=== PATIENT | male | born 2000 | race Caucasian/White ===

== ENCOUNTER 2023-08-20 16:39 | Emergency (ER) | payer OTHER, BC, SELFPAY ==
[2023-08-20 16:47] VITALS: BP 153/103
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
[2023-08-20 19:03] VITALS: BMI 34.3
[2023-08-20 19:14] VITALS: BP 140/90
== END 2023-08-20 20:23 | disposition home or self-care (01) ==
LOC: EMR 16:39
PROVIDERS: EMERGENCY PHYSICIAN Emergency Medicine; FAMILY PHYSICIAN Internal Medicine
DX: S06.0XAA Concussion with loss of consciousness status unknown, initial encounter (principal); V49.40XA Driver injured in collision with unspecified motor vehicles in traffic accident, initial encounter; I10 Essential (primary) hypertension; F31.9 Bipolar disorder, unspecified; F43.10 Post-traumatic stress disorder, unspecified; F25.9 Schizoaffective disorder, unspecified; F90.9 Attention-deficit hyperactivity disorder, unspecified type
CPT/HCPCS: 99282

== ENCOUNTER → 2024-03-19 06:43 | Outpatient (REF) | payer BC, SELFPAY | LOC: MRI 3T 06:43 | PROVIDERS: ATTENDING PHYSICIAN Family Medicine | DX: R55 Syncope and collapse (principal); R51.9 Headache, unspecified; R20.0 Anesthesia of skin; R50.9 Fever, unspecified; M54.2 Cervicalgia | CPT/HCPCS: 70551 ==

== ENCOUNTER 2024-06-15 10:10 | Emergency (ER) | payer BC, SELFPAY ==
[2024-06-15 10:13] VITALS: BP 128/92
[2024-06-15 10:47] VITALS: BP 116/81
[2024-06-15 10:53] VITALS: BMI 27.5
[2024-06-15 11:05] LABS: % Basophils 0.5 % (0-2); % Eosinophils 3.3 % (0-6); % Immature Granulocytes 0.3 % (0-0.5); % Lymphocytes 38.3 % (20.5-51.1); % Monocytes 11.1 % (1.7-9.3); % Neutrophils 46.5 % (42.2-75.2); Absolute Eosinophils 0.3 10^3/uL (0-0.7); Absolute Lymphocytes 3.1 10^3/uL (1.2-3.4); Absolute Monocytes 0.9 10^3/uL (0.1-0.6); Absolute Neutrophils 3.7 10^3/uL (1.4-6.5); Hematocrit 45.1 % (39.0-52.0); Hemoglobin 14.7 g/dL (13.0-18.0); Mean Corp Hgb Conc. 32.6 g/dL (33.0-37.0); Mean Corpuscular Hgb 31.3 pg (27.0-31.0); Mean Corpuscular Volume 96.2 fL (80.0-94.0); Mean Platelet Volume 9.6 fL (7.4-10.4); Nucleated Red Blood Cells % 0 % (-); Platelet Count 218 10^3/uL (130-400); Red Blood Cell Count 4.69 10^6/uL (4.70-6.10); Red Cell Dist. Width 12.3 % (11.5-14.5)
[2024-06-15 11:21] LABS: ALT (SGPT) 26 U/L (0-50); AST (SGOT) 27 U/L (17-59); Albumin 4.5 g/dl (3.5-5.0); Alkaline Phosphatase 55 U/L (38-126); Blood Urea Nitrogen 9 mg/dl (9-20); Calcium 9.6 mg/dl (8.4-10.2); Carbon Dioxide 28 mmol/L (22-30); Chloride 105 mmol/L (98-107); Estimated Creatinine Clearance > 125 ml/min; Glucose 80 mg/dl (70-99); Lipase 190 U/L (23-300); Potassium 4.4 mmol/L (3.5-5.1); Sodium 139 mmol/L (135-145); Total Bilirubin 1.3 mg/dl (0.2-1.3); Total Protein 7.6 g/dl (6.3-8.2); eGFR > 60.00
[2024-06-15 11:30] LABS: C-Reactive Protein < 5.00 mg/L (0.0-10.00)
[2024-06-15] MEDS: OMNIPAQUE 50 ML PO (11:31)
[2024-06-15 11:48] LABS: Erythrocyte Sed Rate 4 mm/hour (0-20)
--- NOTE | 2024-06-15 12:25 | ED.GENMED ---
History of Present Illness
General
Chief Complaint: Abdominal Pain
Time Seen by Provider: 06/15/24 10:43
History of Present Illness
History of Present Illness:
23-year-old male with history of eosinophilic esophagitis but emergency department for evaluation of left-sided abdominal discomfort ongoing for the past 3 to 4 days. 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
test is upcoming in 12 days, however at the time of his visit last week he did not have any abdominal pain. He denies any GERD symptoms that are similar to his EOE. No fevers, chills, or night sweats. No obvious provoking or palliating factors.
No history of intra-abdominal surgery
Past History
Past History
ED Past Medical History: HTN, Psychiatric (Anxiety, Bipolar, PTSD, Schizoeffective, ) and Other (GO Bleeding, ADHD)
ED Past Surgical History: Orthopedic (Knee repair, Left hip repair,)
Social History
Tobacco: Non-smoker
Alcohol: None
Personal: Single
Living: with family
Review of Systems
Review of Systems
Allergies reviewed?: Yes
All Other Systems: ROS reviewed and negative except as documented in HPI and ROS
Phy Exam
Physical Exam
Physical Exam:
GEN: Well appearing, NAD, WDWN
HEENT: Oral mucosa moist, no scleral icterus
Cardiac: Regular rate and rhythm
Lung: No respiratory distress, no tachypnea
Abdomen: Soft, minimal left-sided abdominal tenderness, no focality, nonrigid
MSK: No gross deformity or injuries
Skin: Good color, no pallor or jaundice, no rashes
Neuro: AO x3, moves all extremities freely
Psych: Calm, cooperative
Course
Orders/Labs/Results
Orders:
Orders
06/15/24 10:58
C-Reactive Protein Urgent
Comment: ADD ON
CMP [Comprehensive Metabolic Panel] Urgent
Complete Blood Count/With Diff Urgent
Erythrocyte Sed Rate Urgent
Comment: ADD ON
Lipase Urgent
06/15/24 11:02
Add On- LAB Urgent
Tests Added?: ESR, CRP
Iohexol [Omnipaque] See Protocol PO NOW STA
Abnormal Lab Results
06/15/24
10:58
RBC 4.69 L 10^6/uL
(4.70-6.10)
MCV 96.2 H fL
(80.0-94.0)
MCH 31.3 H pg
(27.0-31.0)
MCHC 32.6 L g/dL
(33.0-37.0)
Absolute Monos (auto) 0.9 H 10^3/uL
(0.1-0.6)
Monocytes % 11.1 H %
(1.7-9.3)
06/15/24 10:58
06/15/24 10:58
Vital Signs
Initial and Last Documented VS:
Initial Vital Signs
Temp Pulse Resp BP Pulse Ox
97.4 F 79 16 128/92 100
06/15/24 10:13 06/15/24 10:13 06/15/24 10:13 06/15/24 10:13 06/15/24 10:13
Last Documented Vital Signs
Temp Pulse Resp BP Pulse Ox
98.3 F 75 16 108/85 100
06/15/24 12:42 06/15/24 12:42 06/15/24 12:42 06/15/24 12:42 06/15/24 12:42
MDM/Problems Addressed
MDM/Problems Addressed:
Patient's labs are completely normal, reassuring that his inflammatory markers are normal as well. Abdominal exam is relatively benign do not see any indication for CT at this time. Recommend continue GI follow-up. Encouraged clear liquids and
transitioning to low residue diet for the next several days
*Critical Care Note
Total Time (30-74mins, 75-104mins- exclusive of procedures): Not Applicable
ED Attending Note
-
Portions of this chart may have been created with voice recognition software.� Occasional wrong word or��sound alike� substitutions may have occurred due to the inherent limitations of voice recognition software.
Discharge Plan
Departure
Patient Disposition: Home (Routine Discharge)
Date of Disposition: 06/15/24
Time of Disposition: 12:25
Patient with high blood pressure during this ER visit?: No
Discharge Problem:
Abdominal pain, lower
Instructions: Clear Liquid Diet, Low-fiber diet
Prescriptions:
No Action
lithium carbonate 300 MG tablet
300 mg PO BID
Patient Comments:
300MG IN AM
900MG IN PM
divalproex 500 MG tablet,delayed release (DR/EC)
1,500 mg PO HS
propranolol 80 MG capsule,extended release 24 hr
80 mg PO DAILY
lurasidone [Latuda] 60 MG tablet
120 mg PO HS
quetiapine 100 MG tablet
100 mg PO PRN PRN (Reason: SLEEP)
pantoprazole 40 MG tablet,delayed release (DR/EC)
40 mg PO DAILY 30 Days Qty: 30 0RF
Referrals:
Tameka Garcia MD [Family Provider] -
Stand Alone Forms: Return to Work
Activity Restrictions/Additional Instructions:
Clear liquids x 48 hours
Low residue (low fiber) x 48 hours thereafter
Interventions
Interventions:
*Risk Screen - Suicide Last Done: 06/15/24 10:53
*General Assessment Last Done: 06/15/24 10:53
*Neglect/Abuse Screening Last Done: 06/15/24 10:53
*ED- Fall Risk Assessment Last Done: 06/15/24 10:53
*ED COVID-19 Vaccine History Last Done: 06/15/24 10:53
*Nursing Disposition Last Done: 06/15/24 12:42
FA-Kggygs-Fxhssnvyqy Assessment Last Done: 06/15/24 10:55
Discharge Date and Time
Discharge Date/Time: 06/15/24 12:45
Print Language: TUNISIAN
--- NOTE | 2024-06-15 12:41 | EDRN ---
Reviewed discharge instructions with patient. Verbalized understanding.
[2024-06-15 12:42] VITALS: BP 108/85
== END 2024-06-15 12:45 | disposition home or self-care (01) ==
LOC: EMR 10:10
PROVIDERS: Physician Assistant; EMERGENCY PHYSICIAN Emergency Medicine; FAMILY PHYSICIAN Family Medicine
DX: R10.30 Lower abdominal pain, unspecified (principal); I10 Essential (primary) hypertension; Z87.19 Personal history of other diseases of the digestive system
CPT/HCPCS: 99283; 80053; 83690; 85025; 85652; 86140

== ENCOUNTER → 2024-06-16 11:55 | Outpatient (REF) | payer BC, SELFPAY | LOC: RAD 11:55 | PROVIDERS: ATTENDING PHYSICIAN Nurse Practitioner Family | DX: R10.32 Left lower quadrant pain (principal); R68.83 Chills (without fever) | CPT/HCPCS: 74177; Q9967 ==

== ENCOUNTER 2024-06-27 06:27 | Day surgery (SDC) | payer BC, SELFPAY | END 2024-06-27 13:48 | disposition home or self-care (01) | LOC: GI 06:27 | PROVIDERS: ATTENDING PHYSICIAN Internal Medicine Gastroenterology | DX: K62.5 Hemorrhage of anus and rectum (principal); K59.00 Constipation, unspecified; R19.7 Diarrhea, unspecified; K62.89 Other specified diseases of anus and rectum; K64.0 First degree hemorrhoids | CPT/HCPCS: 45380; 88305 ==